=== PATIENT | male | born 1945 | race Caucasian/White ===

== ENCOUNTER → 2019-10-04 | Emergency (ER) | payer MEDICARE ==
[~2019-10-04] MED LIST: ISOVUE-370 76% 100ML VIAL As Ordered ONE; LevoFLOXacin 750MG/150ML IV BAG (J1956 PER 250MG) As Ordered ONE; LevoFLOXacin 750MG/150ML IV BAG (J1956 PER 250MG) ONE
--- NOTE | 2019-11-17 17:23 | ECGEPIP ---
SINUS RHYTHM NONSPECIFIC ST & T-WAVE CHANGES SEE SCANNED DOWNTIME REPORT MTDD
[2019-11-20 06:57] LABS: INR 1.04; PARTIAL THROMBOPLASTIN TIME 25.2 SECONDS (24.2-38.5); PROTHROMBIN TIME 13.9 SECONDS (12.5-14.3)
[2019-11-20 09:34] LABS: BASO % 0.4 % (0.0-1.0); HEMATOCRIT 42.3 % (42.0-52.0); HEMOGLOBIN 15.2 g/dl (13.5-17.5); LYMPH # 0.4 10^3/uL (1.5-5.0); LYMPH % 6.7 % (24.0-44.0); MEAN CORPUSCULAR HEMOGLOBIN 34.1 pg (27.0-33.0); MEAN CORPUSCULAR HGB CONC 35.9 g/dl (32.0-36.5); MEAN CORPUSCULAR VOLUME 94.8 fl (80.0-96.0); MONO # 0.4 10^3/uL (0.0-0.8); MONO % 7.5 % (0.0-5.0); NEUTROPHILS # 4.8 10^3/uL (1.5-8.5); NEUTROPHILS % 84.7 % (36.0-66.0); PLATELET COUNT, AUTOMATED 131 10^3/uL (150-450); RED BLOOD COUNT 4.46 10^6/uL (4.30-6.10); WHITE BLOOD COUNT 5.6 10^3/uL (4.0-10.0)
[2019-12-18 14:54] LABS: ALBUMIN 4.2 GM/DL (3.2-5.2); ALT/SGPT 34 U/L (12-78); BILIRUBIN,DIRECT 0.4 MG/DL (0.0-0.2); BILIRUBIN,TOTAL 1.7 MG/DL (0.2-1.0); BLOOD UREA NITROGEN 18 MG/DL (7-18); CALCIUM LEVEL 9.1 MG/DL (8.8-10.2); CARBON DIOXIDE LEVEL 27 MEQ/L (21-32); CHLORIDE LEVEL 101 MEQ/L (98-107); CPK CREATINE PHOSPHOKINASE 36 U/L (39-308); FREE T4 0.89 NG/DL (0.76-1.46); GLOMERULAR FILTRATION RATE > 60.0 (>42); GLUCOSE, FASTING 260 MG/DL (70-100); LIPASE 92 U/L (73-393); MB/CK RELATIVE INDEX 5.56 (< OR =4); NT-PRO BNP 163 PG/ML (<125); POTASSIUM SERUM 4.5 MEQ/L (3.5-5.1); SODIUM LEVEL 133 MEQ/L (136-145); THYROID STIMULATING HORMONE 0.686 uIU/ML (0.358-3.740); TOTAL PROTEIN 6.9 GM/DL (6.4-8.2)
== END | disposition home or self-care (01) ==
LOC: M ED 11:17
DX: J84.9 Interstitial pulmonary disease, unspecified (principal); R91.8 Other nonspecific abnormal finding of lung field; R16.0 Hepatomegaly, not elsewhere classified; E11.9 Type 2 diabetes mellitus without complications; I10 Essential (primary) hypertension; J44.9 Chronic obstructive pulmonary disease, unspecified; Z88.8 Allergy status to other drugs, medicaments and biological substances; Z79.899 Other long term (current) drug therapy
CPT/HCPCS: 71046; 71275; 80048; 80076; 82270; 82550; 82553; 83690; 83880; 84439; 84443; 85025; 85610; 85730; 87040; 93005; 96374; 99284; J1956; Q9967

== ENCOUNTER → 2020-09-10 | Outpatient (CLI) | payer MEDICARE | LOC: M RAD 08:56 | PROVIDERS: ATTEND Physician Assistant | DX: R94.5 Abnormal results of liver function studies (principal) ==

== ENCOUNTER → 2020-11-29 | Outpatient (CLI) | payer MEDICARE ==
[~2020-11-29] MED LIST changes: +ISOVUE-300 61% 50ML VIAL As Ordered ONE; -ISOVUE-370 76% 100ML VIAL As Ordered ONE; +LIDOCAINE 1% MDV 20ML VIAL As Ordered ONE; -LevoFLOXacin 750MG/150ML IV BAG (J1956 PER 250MG) As Ordered ONE; -LevoFLOXacin 750MG/150ML IV BAG (J1956 PER 250MG) ONE; +methylPREDNISolone SUSP 40MG/ML 1ML VIAL (DEPO MEDROL) As Ordered ONE
--- NOTE | 2020-11-29 14:35 | REP ---
INDICATION: LT HIP OA W/ PAIN. COMPARISON: None TECHNIQUE: The procedure was performed by MICHELLE Chandler, under the direct supervision of Dr. Pang. The benefits and risks of the procedure were explained to the patient, and an informed consent was obtained. Directly prior to the start of the procedure, a formal time-out was completed in the procedure room. The left femoral neck joint space was localized using fluoroscopic guidance. The skin was prepped and draped in a sterile fashion. Approximately 5 mL of 1% Lidocaine 10 mg/ml was used as a local anesthetic. Using fluoroscopic guidance, a #22 gauge spinal needle was inserted and advanced into the left femoral neck joint space. Approximately 1 mL of Isovue 300 was injected to verify placement. Seven mL of a solution containing 5 mL 1% lidocaine 10 mg/ml and 2 mL Depo-Medrol 40 milligrams/milliliter was injected into the joint space. The needle was removed and hemostasis was achieved. FINDINGS: The patient tolerated the procedure well and there were no immediate complications. IMPRESSION: 1. Fluoroscopically guided intra-articular left hip pain injection. 0.3 minutes of fluoroscopy time was utilized for this procedure. Some fluoroscopic images are performed with last image hold technology. These images require no additional radiation. <Electronically signed by Camila Chavis > 11/29/20 1202 <Electronically signed by Raúl Pang > 11/29/20 [id number]
== END ==
LOC: M RADPRO 10:03
PROVIDERS: ATTEND Orthopaedic Surgery
DX: M16.12 Unilateral primary osteoarthritis, left hip (principal)
CPT/HCPCS: 20610; 77002; J1030; Q9967

== ENCOUNTER → 2021-08-06 | Outpatient (CLI) | payer MEDICARE | LOC: M WHC 08:54 | PROVIDERS: ATTEND Physician Assistant | DX: K74.60 Unspecified cirrhosis of liver (principal) ==

== ENCOUNTER 2022-07-08 20:21 | Inpatient (IN) | payer MEDICARE ==
[~2022-07-08] VITALS: Ht 177.8 cm; Wt 87.0 kg
[2022-07-08] MEDS ORDERED: NS 1,000 ML IV ONE ×2 (20:45→23:30)
[2022-07-08 21:14] LABS: BASO % 0.2 % (0.0-1.0); EOS % 0.5 % (0.0-3.0); HEMATOCRIT 32.4 % (42.0-52.0); HEMOGLOBIN 11.1 g/dl (13.5-17.5); LYMPH # 0.2 10^3/uL (1.5-5.0); MEAN CORPUSCULAR HEMOGLOBIN 31.7 pg (27.0-33.0); MEAN CORPUSCULAR HGB CONC 34.3 g/dl (32.0-36.5); MEAN CORPUSCULAR VOLUME 92.6 fl (80.0-96.0); MONO # 0.4 10^3/uL (0.0-0.8); MONO % 6.8 % (2.0-8.0); NEUTROPHILS # 5.7 10^3/uL (1.5-8.5); NEUTROPHILS % 89.2 % (36.0-66.0); PLATELET COUNT, AUTOMATED 129 10^3/uL (150-450); WHITE BLOOD COUNT 6.4 10^3/uL (4.0-10.0)
[2022-07-08 21:24] LABS: CK-MB VALUE MASS 3.5 NG/ML (<3.6)
[2022-07-08 21:25] LABS: LIPASE 32 U/L (12-53)
[2022-07-08] MEDS ORDERED: ACETAMINOPHEN TAB 650MG DOSE (2X325MG) PO ONE (21:25)
[2022-07-08] MEDS ORDERED: cefTRIAXone SOD 2 GM in D5W MINI-BAG PLUS 50 ML IV ONE (21:25)
[2022-07-08 21:26] LABS: CPK CREATINE PHOSPHOKINASE 142 U/L (46-171); MB/CK RELATIVE INDEX 2.46 (< OR =4)
[2022-07-08 21:27] LABS: ALBUMIN 3.4 G/DL (3.2-5.2); ALKALINE PHOSPHATASE 122 U/L (46-116); ALT/SGPT 42 U/L (7.0-40); AST/SGOT 30 U/L (<34); BILIRUBIN,DIRECT 0.8 MG/DL (<0.4); BLOOD UREA NITROGEN 22 MG/DL (9-23); CALCIUM LEVEL 9.1 MG/DL (8.3-10.6); CARBON DIOXIDE LEVEL 24 MMOL/L (20-31); CHLORIDE LEVEL 102 MMOL/L (98-107); CREATININE FOR GFR 0.93 MG/DL (0.70-1.30); GLOMERULAR FILTRATION RATE > 60.0 (>42); GLUCOSE, FASTING 169 MG/DL (74-106); POTASSIUM SERUM 4.2 MMOL/L (3.5-5.1); SODIUM LEVEL 136 MMOL/L (136-145); TOTAL PROTEIN 6.2 G/DL (5.7-8.2)
[2022-07-08 21:58] LABS: MAGNESIUM LEVEL 1.8 MG/DL (1.8-2.4)
[2022-07-08] MEDS ORDERED: NITROGLYCERIN 2% OINT 1 GM *U/D* PKT TOP ONE (22:45)
[2022-07-08] MEDS ORDERED: ASPI-161 PO (23:24)
[2022-07-08] MEDS ORDERED: CYAN100050 PO (23:24)
[2022-07-08] MEDS ORDERED: CELE1CAP4 PO (23:24)
[2022-07-08] MEDS ORDERED: EZET10TA21 PO (23:24)
[2022-07-08] MEDS ORDERED: FURO40TA2 PO (23:24)
[2022-07-08] MEDS ORDERED: TRES100I SC (23:24)
[2022-07-08] MEDS ORDERED: POTA1TAB23 PO (23:24)
[2022-07-08] MEDS ORDERED: METO1TAB32 PO (23:24)
[2022-07-08] MEDS ORDERED: FLUT1BLS8 INH (23:24)
[2022-07-08] MEDS ORDERED: LOSA25TA13 PO (23:24)
[2022-07-08] MEDS ORDERED: ALBU8.5H INH (23:26)
[2022-07-08] MEDS ORDERED: HOME MED LIST COMPLETE! XX SCH (23:30)
[2022-07-09] VITALS (7 sets, daily range): BP systolic 101–121; BP diastolic 56–69
[2022-07-09] MEDS ORDERED: GLUCOSE 4GM CHEW TABLET PO PRN (01:20)
[2022-07-09] MEDS ORDERED: DEXTROSE 50% 50ML SYRINGE IV PRN (01:20)
[2022-07-09] MEDS ORDERED: NS 1,000 ML IV SCH (01:20)
[2022-07-09] MEDS ORDERED: GLUCAGON INJ 1MG VIAL SC PRN (01:20)
[2022-07-09] MEDS: PIPERACILLIN/TAZOBACTAM SOD 3.375 GM in D5W MINI-BAG PLUS 50 ML IV SCH ×4 (01:53→20:52)
[2022-07-09] MEDS ORDERED: ALBUTEROL SULFATE 2.5MG/0.5ML INH NEB SOLN NEB PRN (02:10)
[2022-07-09] MEDS: INSULIN LISPRO (NovoLOG) PER UNIT SC SCH ×4 (02:48→18:00)
[2022-07-09 06:20] LABS: HEMOGLOBIN 10.8 g/dl (13.5-17.5); MEAN CORPUSCULAR HEMOGLOBIN 32.1 pg (27.0-33.0); MEAN CORPUSCULAR HGB CONC 33.8 g/dl (32.0-36.5); MEAN CORPUSCULAR VOLUME 95.2 fl (80.0-96.0); PLATELET COUNT, AUTOMATED 121 10^3/uL (150-450); RED BLOOD COUNT 3.36 10^6/uL (4.30-6.10); WHITE BLOOD COUNT 7.3 10^3/uL (4.0-10.0)
[2022-07-09 06:28] LABS: INR 1.05; PROTHROMBIN TIME 13.9 SECONDS (12.5-14.5)
[2022-07-09 07:00] LABS: ALKALINE PHOSPHATASE 103 U/L (46-116); ALT/SGPT 37 U/L (7.0-40); AST/SGOT 31 U/L (<34); BILIRUBIN,TOTAL 1.9 MG/DL (0.3-1.2); BLOOD UREA NITROGEN 17 MG/DL (9-23); CALCIUM LEVEL 8.8 MG/DL (8.3-10.6); CARBON DIOXIDE LEVEL 24 MMOL/L (20-31); CHLORIDE LEVEL 109 MMOL/L (98-107); CREATININE FOR GFR 0.96 MG/DL (0.70-1.30); GLOMERULAR FILTRATION RATE > 60.0 (>42); GLUCOSE, FASTING 127 MG/DL (74-106); POTASSIUM SERUM 4.4 MMOL/L (3.5-5.1); SODIUM LEVEL 142 MMOL/L (136-145); TOTAL PROTEIN 5.5 G/DL (5.7-8.2)
[2022-07-09] MEDS: IPRATROPIUM 0.5MG/ALBUTEROL 2.5MG INH SOL UD 3ML (DUONEB) NEB SCH ×3 (07:37→19:53)
[2022-07-09] MEDS ORDERED: ISOVUE-370 76% 100ML VIAL As Ordered ONE (08:05)
[2022-07-09] MEDS ORDERED: ALBUTEROL 90 MCG/ACT 8GM HFA INHALER INH PRN (09:40)
[2022-07-09] MEDS: ADVAIR HFA 230/21MCG INHALER INH SCH ×2 (11:41→19:54)
[2022-07-09] MEDS: ASPIRIN 81MG ENTERIC TABLET PO SCH (12:12)
[2022-07-09] MEDS: EZETIMIBE 10MG TABLET (ZETIA) PO SCH (12:13)
[2022-07-09] MEDS: TIOTROPIUM INHALER/CAPSULE (SPIRIVA) INH SCH (14:32)
[2022-07-10] MEDS: IPRATROPIUM 0.5MG/ALBUTEROL 2.5MG INH SOL UD 3ML (DUONEB) NEB SCH ×4 (01:30→20:00)
[2022-07-10] MEDS: PIPERACILLIN/TAZOBACTAM SOD 3.375 GM in D5W MINI-BAG PLUS 50 ML IV SCH ×4 (03:01→20:29)
[2022-07-10 04:00] VITALS: BP 119/60
[2022-07-10] MEDS: INSULIN LISPRO (NovoLOG) PER UNIT SC SCH ×4 (05:04→17:48)
[2022-07-10] MEDS: TIOTROPIUM INHALER/CAPSULE (SPIRIVA) INH SCH (07:38)
[2022-07-10] MEDS: ADVAIR HFA 230/21MCG INHALER INH SCH ×2 (07:38→20:01)
[2022-07-10 08:28] VITALS: BP 125/59
[2022-07-10] MEDS: EZETIMIBE 10MG TABLET (ZETIA) PO SCH (09:34)
[2022-07-10] MEDS: ASPIRIN 81MG ENTERIC TABLET PO SCH (09:34)
[2022-07-10 13:00] VITALS: BP 109/54
[2022-07-10] MEDS ORDERED: DEXTROSE 50% 50ML SYRINGE IV PRN (15:00)
[2022-07-10 16:37] VITALS: BP 130/65
[2022-07-10] MEDS ORDERED: INSULIN LISPRO (NovoLOG) PER UNIT SC SCH ×2 (17:30→21:00)
[2022-07-10 20:12] LABS: MAGNESIUM LEVEL 1.9 MG/DL (1.8-2.4)
[2022-07-10 20:29] VITALS: BP 119/64
[2022-07-11] VITALS (7 sets, daily range): BP systolic 98–123; BP diastolic 57–68
[2022-07-11] MEDS: IPRATROPIUM 0.5MG/ALBUTEROL 2.5MG INH SOL UD 3ML (DUONEB) NEB SCH ×3 (01:25→13:39)
[2022-07-11] MEDS: PIPERACILLIN/TAZOBACTAM SOD 3.375 GM in D5W MINI-BAG PLUS 50 ML IV SCH ×3 (02:50→14:00)
[2022-07-11] MEDS: TIOTROPIUM INHALER/CAPSULE (SPIRIVA) INH SCH (07:22)
[2022-07-11] MEDS: ADVAIR HFA 230/21MCG INHALER INH SCH (07:23)
[2022-07-11] MEDS: ASPIRIN 81MG ENTERIC TABLET PO SCH (08:42)
[2022-07-11] MEDS: INSULIN LISPRO (NovoLOG) PER UNIT SC SCH ×2 (08:42→12:47)
[2022-07-11] MEDS: EZETIMIBE 10MG TABLET (ZETIA) PO SCH (08:42)
[2022-07-11 08:57] LABS: BASO % 0.4 % (0.0-1.0); EOS # 0.1 10^3/uL (0.0-0.5); EOS % 2.4 % (0.0-3.0); HEMATOCRIT 29.1 % (42.0-52.0); HEMOGLOBIN 9.9 g/dl (13.5-17.5); LYMPH # 0.2 10^3/uL (1.5-5.0); LYMPH % 6.7 % (24.0-44.0); MEAN CORPUSCULAR HEMOGLOBIN 31.8 pg (27.0-33.0); MEAN CORPUSCULAR VOLUME 93.6 fl (80.0-96.0); MONO # 0.2 10^3/uL (0.0-0.8); MONO % 8.7 % (2.0-8.0); NEUTROPHILS # 2.1 10^3/uL (1.5-8.5); PLATELET COUNT, AUTOMATED 129 10^3/uL (150-450); RED BLOOD COUNT 3.11 10^6/uL (4.30-6.10); WHITE BLOOD COUNT 2.5 10^3/uL (4.0-10.0)
[2022-07-11 09:15] LABS: ALBUMIN 2.6 G/DL (3.2-5.2); ALKALINE PHOSPHATASE 94 U/L (46-116); ALT/SGPT 34 U/L (7.0-40); AST/SGOT 26 U/L (<34); BILIRUBIN,TOTAL 1.1 MG/DL (0.3-1.2); BLOOD UREA NITROGEN 15 MG/DL (9-23); CALCIUM LEVEL 8.1 MG/DL (8.3-10.6); CARBON DIOXIDE LEVEL 24 MMOL/L (20-31); CHLORIDE LEVEL 106 MMOL/L (98-107); CREATININE FOR GFR 0.88 MG/DL (0.70-1.30); GLOMERULAR FILTRATION RATE > 60.0 (>42); GLUCOSE, FASTING 225 MG/DL (74-106); POTASSIUM SERUM 3.6 MMOL/L (3.5-5.1); SODIUM LEVEL 140 MMOL/L (136-145); TOTAL PROTEIN 5.3 G/DL (5.7-8.2)
[2022-07-11] MEDS ORDERED: BACT800T5 PO (12:05)
[2022-07-11] MEDS ORDERED: PRED20TA PO (12:09)
[2022-07-11] MEDS ORDERED: ALBU8.5H INH (12:09)
== END 2022-07-11 15:22 | disposition home health service (06) | DRG 871 ==
LOC: M ED 20:21 → EDBD 20:21 → M ED INP 23:18 → M PCU 07-09 01:04
PROVIDERS: ADMIT Internal Medicine; ATTEND Internal Medicine
DX: A41.9 Sepsis, unspecified organism (principal); G93.41 Metabolic encephalopathy; N39.0 Urinary tract infection, site not specified; N10 Acute pyelonephritis; I50.32 Chronic diastolic (congestive) heart failure; J45.909 Unspecified asthma, uncomplicated; J44.9 Chronic obstructive pulmonary disease, unspecified; I11.0 Hypertensive heart disease with heart failure; E11.9 Type 2 diabetes mellitus without complications; K70.30 Alcoholic cirrhosis of liver without ascites; I48.91 Unspecified atrial fibrillation; B96.20 Unspecified Escherichia coli [E. coli] as the cause of diseases classified elsewhere; Z88.8 Allergy status to other drugs, medicaments and biological substances; Z79.899 Other long term (current) drug therapy; Z79.4 Long term (current) use of insulin; Z95.0 Presence of cardiac pacemaker